=== PATIENT | male | born 2000 | race Caucasian/White ===

== ENCOUNTER 2024-03-02 00:09 | Emergency (ER) | payer OTHER ==
[~2024-03-02] VITALS: Ht 182.8 cm; Wt 69.4 kg
[2024-03-02] MEDS ORDERED: ERYTHROMYCIN OPH1 GM OPH (00:43)
== END 2024-03-02 00:46 | disposition home or self-care (01) ==
LOC: ED 00:09
DX: H10.9 Unspecified conjunctivitis (principal)